=== PATIENT | female | born 1940 | race Caucasian/White ===

== ENCOUNTER 2024-07-01 19:38 | Inpatient (IN) | payer MEDICARE, OTHER, SELFPAY ==
[2024-07-01] VITALS (14 sets, daily range): BP systolic 114–137; BP diastolic 53–61; PULSE 64–76; RESP 16–26; TEMP 36.6–36.9; O2SAT 77–98; BMI 18.3
[2024-07-01 20:34] LABS: Absolute Lymphocyte Count 1.43 X10^3/uL (0.83-4.51); Absolute Neutrophil Count 25.1 X10^3/uL (2.0-7.7); Basophil# 0.12 X10^3/uL; Basophil% 0.4 % (0-1); Eosinophil# 0.01 X10^3/uL; Hematocrit 41.4 % (37-47); Hemoglobin 13.1 g/dL (12.0-15.0); Lymphocyte # 1.43 X10^3/ul (0.83-4.51); Mean Corp Hgb Conc 31.6 g/dL (32-36); Mean Corpuscular Hgb 29.8 pg (27.0-32.0); Mean Corpuscular Volume 94.1 fL (81-99); Mean Platelet Vol. 10.4 fl (6.2-12.0); Monocyte# 1.76 X10^3/uL; Monocyte% 6.1 % (0-10); NRBC Flagged by Analyzer 0 % (0-5); Neutrophil # 25.08 X10^3/uL (2.7-7.7); Neutrophil % 87.3 % (47-70); POSITIVE DIFFERENTIAL YES; Platelet Count 444 K/mm3 (150-450); RBC Distribution Width CV 13.2 % (11.6-14.6); RBC Distribution Width SD 46.5 fl (35.1-43.9); White Blood Count 28.8 K/mm3 (4.4-11.0)
[2024-07-01] MEDS: Ipratropium/Albuterol Sulfate 3 ML AMPUL.NEB 9 ML INHALATION (20:43)
[2024-07-01] MEDS: MethylPREDNISolone 125 MG/2 ML Vial IV (20:45)
[2024-07-01 21:00] LABS: Anion Gap 6 (5-15); BUN 17 mg/dL (7-18); Calcium,Total 9.5 mg/dL (8.5-10.1); Chloride 97 mmol/L (98-107); Creatinine, Serum 0.77 mg/dL (0.55-1.02); EST Glomerular Filtration Rate 75 mL/min (>60); Est Glom Filt Rate - Afr Amer 91 mL/min (>60); Estimated Creatinine Clearance 33.95 ml/min; Glucose 111 mg/dL (74-106); Potassium 4.5 mmol/L (3.5-5.1); Sodium Level 136 mmol/L (136-145); Troponin-I HS 11 pg/mL (3.0-54.0)
[2024-07-01 21:08] LABS: BNP,B-Type NATRIURETIC PEPTIDE 335.3 pg/mL (0-100)
[2024-07-01 21:14] LABS: Differential Indicated SCAN CRITERIA MET
[2024-07-01 21:17] LABS: Differential Comment SCANNED; Reactive Lymphocyte 1+; Toxic Granulation 1+
[2024-07-01 21:28] LABS: D-Dimer Quantitative (DVT/PE) 1.91 FEU/ug/m (0.27-0.49)
[2024-07-01] MEDS: Ceftriaxone 1 GM/50 ML BAG IV (22:54)
[2024-07-01] MEDS: Azithromycin 500 MG in Dextrose 5%-Water (250mL Bag) 250 ML 250 MG IV (23:29)
[2024-07-02] VITALS (13 sets, daily range): BP systolic 106–120; BP diastolic 55–73; PULSE 60–78; RESP 16–20; TEMP 36.5–36.9; O2SAT 93–95; BMI 18.0
[2024-07-02] MEDS: 0.9% Normal Saline (1000mL) 1,000 ML 70 ML IV (00:50)
[2024-07-02 01:33] LABS: Amphetamine Urine VISTA NEGATIVE (<1000 ng/mL); Barbiturate Urine VISTA NEGATIVE (< 200 ng/mL); Benzodiazepine Urine VISTA NEGATIVE (< 200 ng/mL); Cocaine Urine VISTA NEGATIVE (< 300 ng/mL); Ecstacy Urine VISTA NEGATIVE (< 500 ng/mL); Methadone Urine VISTA NEGATIVE (< 300 ng/mL); PCP Urine VISTA NEGATIVE (< 25 ng/mL); THC Urine VISTA NEGATIVE (< 50 ng/mL); Vista UDS pH Range 6
[2024-07-02 08:19] LABS: Absolute Lymphocyte Count 0.71 X10^3/uL (0.83-4.51); Absolute Neutrophil Count 17.4 X10^3/uL (2.0-7.7); Basophil# 0.01 X10^3/uL; Basophil% 0.1 % (0-1); Hematocrit 35.5 % (37-47); Hemoglobin 11.4 g/dL (12.0-15.0); Lymphocyte # 0.71 X10^3/ul (0.83-4.51); Lymphocyte % 3.9 % (19-41); Mean Corp Hgb Conc 32.1 g/dL (32-36); Mean Corpuscular Hgb 29.9 pg (27.0-32.0); Mean Corpuscular Volume 93.2 fL (81-99); Mean Platelet Vol. 10.2 fl (6.2-12.0); Monocyte# 0.13 X10^3/uL; Monocyte% 0.7 % (0-10); NRBC Flagged by Analyzer 0 % (0-5); Neutrophil # 17.39 X10^3/uL (2.7-7.7); Neutrophil % 94.6 % (47-70); Platelet Count 362 K/mm3 (150-450); RBC Distribution Width CV 13.1 % (11.6-14.6); RBC Distribution Width SD 44.5 fl (35.1-43.9); Red Blood Count 3.81 M/mm3 (4.2-5.4); White Blood Count 18.4 K/mm3 (4.4-11.0)
[2024-07-02] MEDS: Pantoprazole Sodium 40 MG Tablet PO (08:50)
[2024-07-02] MEDS: Losartan Potassium 100 MG Tablet PO (08:51)
[2024-07-02] MEDS: Carvedilol 6.25 MG Tablet PO ×2 (08:51→21:39)
[2024-07-02] MEDS: Lactobacillis Acidophilus 1 CAP PO ×3 (08:51→21:39)
[2024-07-02] MEDS: Heparin Injection (Vial) 5,000 UNIT/ML VIAL 5000 UNIT SC ×2 (08:52→21:40)
[2024-07-02] MEDS: amLODIPine 10 MG Tablet PO (08:52)
[2024-07-02] MEDS: guaiFENesin 1,200 MG Tablet 1200 MG PO ×2 (09:11→21:40)
[2024-07-02] MEDS: Ensure Plus High Protein 120 ML LIQUID PO ×2 (09:14→11:37)
[2024-07-02 09:15] LABS: ALB/GLOB Ratio 0.6 RATIO (0.9-2.4); AST(SGOT) 17 U/L (15-37); Alanine Aminotransfer ALT/SGPT 18 U/L (13-56); Albumin, Serum 2.4 g/dL (3.2-5.0); Alkaline Phosphatase 86 U/L (45-117); Anion Gap 13 (5-15); BUN 12 mg/dL (7-18); BUN/Creat Ratio 22.3 RATIO (10-20); Calcium,Total 7.3 mg/dL (8.5-10.1); Chloride 102 mmol/L (98-107); Creatinine, Serum 0.54 mg/dL (0.55-1.02); EST Glomerular Filtration Rate 114 mL/min (>60); Est Glom Filt Rate - Afr Amer 138 mL/min (>60); Estimated Creatinine Clearance 33.23 ml/min; Globulin 4.2 g/dL (2.2-4.2); Glucose 134 mg/dL (74-106); Phosphorus 3.8 mg/dL (2.5-4.9); Potassium 4.5 mmol/L (3.5-5.1); Protein, Total 6.6 g/dL (6.4-8.2); Sodium Level 138 mmol/L (136-145)
[2024-07-02] MEDS: FLU VACCINE **HIGH DOSE** TV 24-25 180 MCG/0.5 ML SYRINGE IM (09:15)
[2024-07-02] MEDS: levoFLOXacin IV 750 MG/150 ML BAG 100 MG IV (09:55)
[2024-07-02] MEDS: Ipratropium/Albuterol Sulfate 3 ML AMPUL.NEB INHALATION (11:10)
[2024-07-02 14:08] LABS: Pathologist Review Reviewed
[2024-07-02] MEDS: 0.9% Saline Lock 10 ML Syringe IV ×2 (14:53→21:37)
[2024-07-02 16:15] LABS: Vitamin B12 332 pg/mL (211-911)
[2024-07-02] MEDS: Furosemide 20 MG Tablet PO (16:41)
[2024-07-02] MEDS: Latanoprost 0.005% 1 Bottle 1 DRP OPHTHALMIC (21:40)
[2024-07-03] VITALS (10 sets, daily range): BP systolic 109–118; BP diastolic 47–65; PULSE 61–81; RESP 18; TEMP 36.4–36.6; O2SAT 87–97; BMI 18.3
[2024-07-03] MEDS: Ipratropium/Albuterol Sulfate 3 ML AMPUL.NEB INHALATION ×2 (07:06→11:04)
[2024-07-03 07:09] LABS: Absolute Neutrophil Count 17.5 X10^3/uL (2.0-7.7); Basophil# 0.01 X10^3/uL; Basophil% 0.1 % (0-1); Hematocrit 35.6 % (37-47); Hemoglobin 11.2 g/dL (12.0-15.0); Lymphocyte % 3.2 % (19-41); Mean Corp Hgb Conc 31.5 g/dL (32-36); Mean Corpuscular Hgb 29.4 pg (27.0-32.0); Mean Corpuscular Volume 93.4 fL (81-99); Mean Platelet Vol. 10.1 fl (6.2-12.0); Monocyte# 0.41 X10^3/uL; Monocyte% 2.2 % (0-10); NRBC Flagged by Analyzer 0 % (0-5); Neutrophil # 17.48 X10^3/uL (2.7-7.7); Neutrophil % 93.8 % (47-70); POSITIVE DIFFERENTIAL YES; Platelet Count 388 K/mm3 (150-450); RBC Distribution Width SD 44.6 fl (35.1-43.9); Red Blood Count 3.81 M/mm3 (4.2-5.4); White Blood Count 18.6 K/mm3 (4.4-11.0)
[2024-07-03 07:32] LABS: Anion Gap 3 (5-15); BUN 24 mg/dL (7-18); BUN/Creat Ratio 37.7 RATIO (10-20); Calcium,Total 8.9 mg/dL (8.5-10.1); Chloride 103 mmol/L (98-107); Creatinine, Serum 0.64 mg/dL (0.55-1.02); EST Glomerular Filtration Rate 94 mL/min (>60); Est Glom Filt Rate - Afr Amer 114 mL/min (>60); Estimated Creatinine Clearance 33.71 ml/min; Glucose 140 mg/dL (74-106); Magnesium 1.9 mg/dL (1.6-2.6); Phosphorus 3.7 mg/dL (2.5-4.9); Potassium 3.8 mmol/L (3.5-5.1); Sodium Level 139 mmol/L (136-145)
[2024-07-03] MEDS: Carvedilol 6.25 MG Tablet PO (09:15)
[2024-07-03] MEDS: Lactobacillis Acidophilus 1 CAP PO ×2 (09:15→14:24)
[2024-07-03] MEDS: Losartan Potassium 100 MG Tablet PO (09:16)
[2024-07-03] MEDS: Heparin Injection (Vial) 5,000 UNIT/ML VIAL 5000 UNIT SC (09:16)
[2024-07-03] MEDS: amLODIPine 10 MG Tablet PO (09:16)
[2024-07-03] MEDS: Furosemide 20 MG Tablet PO (09:16)
[2024-07-03] MEDS: guaiFENesin 1,200 MG Tablet 1200 MG PO (09:16)
[2024-07-03] MEDS: Pantoprazole Sodium 40 MG Tablet PO (09:16)
[2024-07-03] MEDS: 0.9% Saline Lock 10 ML Syringe IV (14:24)
== END 2024-07-03 15:24 | disposition home health service (06) | DRG 193 ==
LOC: ED 23:00 → MS3 23:20
PROVIDERS: Admitting Provider Internal Medicine; Emergency Provider Surgery; PCP Family Medicine; Visit Provider Internal Medicine
DX: J18.9 Pneumonia, unspecified organism (principal); G93.41 Metabolic encephalopathy; J96.01 Acute respiratory failure with hypoxia; G92.8 Other toxic encephalopathy; R64 Cachexia; J44.0 Chronic obstructive pulmonary disease with (acute) lower respiratory infection; J44.1 Chronic obstructive pulmonary disease with (acute) exacerbation; Z68.1 Body mass index [BMI] 19.9 or less, adult; I27.20 Pulmonary hypertension, unspecified; F03.90 Unspecified dementia, unspecified severity, without behavioral disturbance, psychotic disturbance, mood disturbance, and anxiety; I10 Essential (primary) hypertension; I07.1 Rheumatic tricuspid insufficiency; K21.9 Gastro-esophageal reflux disease without esophagitis; M19.90 Unspecified osteoarthritis, unspecified site; E86.1 Hypovolemia; J43.2 Centrilobular emphysema; H40.9 Unspecified glaucoma; Z23 Encounter for immunization; Z66 Do not resuscitate; Z11.52 Encounter for screening for COVID-19; R79.89 Other specified abnormal findings of blood chemistry; Z79.899 Other long term (current) drug therapy; Z87.891 Personal history of nicotine dependence
CPT/HCPCS: 36415; 71046; 71275; 80048; 80053; 80307; 82607; 82746; 83735; 83880; 84100; 84443; 84484; 85025; 85379; 87449; 87631; 87633; 90662; 93005; 93306; 93970; 94640; 94668; 97161; 97166; 97802; 99285; J7030; J7040; Q9967; A4216

== ENCOUNTER → 2024-07-24 | Outpatient (CLI) | payer MEDICARE, OTHER, SELFPAY ==
[2024-07-24 10:49] LABS: Hematocrit 39.7 % (37-47); Hemoglobin 12.3 g/dL (12.0-15.0); Mean Corpuscular Hgb 29.6 pg (27.0-32.0); Mean Corpuscular Volume 95.4 fL (81-99); Mean Platelet Vol. 10.5 fl (6.2-12.0); Platelet Count 331 K/mm3 (150-450); RBC Distribution Width CV 13.3 % (11.6-14.6); RBC Distribution Width SD 46.6 fl (35.1-43.9); Red Blood Count 4.16 M/mm3 (4.2-5.4); White Blood Count 12.9 K/mm3 (4.4-11.0)
[2024-07-24 11:46] LABS: Anion Gap 5 (5-15); BUN 19 mg/dL (7-18); Calcium,Total 9.1 mg/dL (8.5-10.1); Chloride 101 mmol/L (98-107); Creatinine, Serum 0.56 mg/dL (0.55-1.02); EST Glomerular Filtration Rate 109 mL/min (>60); Est Glom Filt Rate - Afr Amer 132 mL/min (>60); Glucose 99 mg/dL (74-106); Potassium 4.9 mmol/L (3.5-5.1); Sodium Level 139 mmol/L (136-145)
== END | disposition home or self-care (01) ==
LOC: HHLAB 10:33
PROVIDERS: PCP Family Medicine; Referring Provider Family Medicine; Visit Provider Family Medicine
DX: J18.9 Pneumonia, unspecified organism (principal); J44.0 Chronic obstructive pulmonary disease with (acute) lower respiratory infection; J44.1 Chronic obstructive pulmonary disease with (acute) exacerbation; G93.41 Metabolic encephalopathy
CPT/HCPCS: 80048; 85027

== ENCOUNTER 2025-05-30 13:35 | Emergency (ER) | payer MEDICARE, OTHER, SELFPAY ==
[2025-05-30] VITALS (10 sets, daily range): BP systolic 120–148; BP diastolic 45–59; PULSE 46–64; RESP 13–22; TEMP 36.6–36.9; O2SAT 96–100; BMI 19.3
--- NOTE | 2025-05-30 14:13 | EKG12_ITS ---
Test Reason : GENERAL WEAKNESS Blood Pressure : */* mmHG Vent. Rate : 47 BPM Atrial Rate : 47 BPM P-R Int : 192 ms QRS Dur : 76 ms QT Int : 452 ms P-R-T Axes : 70 -53 38 degrees QTcB Int : 400 ms Sinus bradycardia Left anterior fascicular block Nonspecific ST abnormality Abnormal ECG Confirmed by DORA CASTANEDA, MARIO ([id number]), food editor TAY REEDER ([id number]) on 06/02/2025 6:30:52 AM Referred By: Confirmed By: MARIO JOHN MD
--- NOTE | 2025-05-30 14:27 | EDS_ITS ---
HPI History of Present Illness Chief Complaint: Shortness of Breath Informant: patient Narrative Narrative: Patient is a 84-year-old female with history of dementia, scoliosis with chronic back pain, hypertension and GERD presenting for evaluation after an episode of near syncope. Patient was 2 L of oxygen at baseline. She reportedly had a normal day and had her hair done. They were back home soon on the deck when she felt like she needed to use the restroom. She started walking to the bathroom but her daughter noted that something seemed off so she followed her. Patient was noted to become hot, very pale and sweaty. She sat down. Granddaughter tried to take vitals and her heart rate was 45, O2 sat was 95 but she could not get her blood pressures and then the 1 was called. Family reports that when EMS checked her heart rate was 143 and her O2 sat was 78% on 2 L. She was turned up to 3 L and transferred to the emergency room. Family notes that patient has returned to baseline. Family does note that her heart rate does tend to run in the 40s and 50s. [facility] Medical History Former smoker Dementia HTN (hypertension) COPD (chronic obstructive pulmonary disease) Home Medications ?Medication ?Instructions ?Recorded ?Last Taken ?Type amlodipine 10 mg tablet 10 mg PO DAILY 07/01/24 Unkn own History carvedilol 6.25 mg tablet 6.25 mg PO BID 07/01/24 Unkn own History donepezil 5 mg tablet 2.5 mg PO QHS 07/01/24 Unkno wn History hydrocodone-acetaminophen 5-325mg 1 tab PO BID PRN sev ere pain 07/01/24 Unknown History 5mg-325mg latanoprost 0.005 % eye drops 1 drp ophthalmic (eye) Q HS 07/01/24 Unknown History losartan 100 mg tablet 100 mg PO DAILY 07/01/24 Unk nown History omeprazole 40 mg capsule,delayed 40 mg PO DAILY Unknown History release albuterol sulfate 90 mcg/actuation 1 inh inhalation Q6 H PRN shortness 07/03/24 Unknown Rx aerosol inhaler of breath or wheezing #8.5 g elma cephalexin 500 mg capsule 500 mg PO Q12 #10 CAPSULES 1 Unknown Rx Allergy/AdvReac Type Severity Reaction Status Date / Time No Known Allergies Allergy Verified 05/30/25 13:35 Surgical History Shoulder joint replacement status Social History Smoking Status: Former smoker ROS ROS ED Constitutional Constitutional ED: Reports sweats and other Details: Near syncopal episode ; Denies chills or fever(s) Eyes Eyes: Denies change in vision Respiratory/Chest Respiratory/Chest: Denies cough Gastrointestinal Gastrointestinal: Denies abdominal pain, nausea or vomiting Genitourinary Genitourinary ED: Denies urinary frequency Musculoskeletal Musculoskeletal: Reports back pain; Denies myalgias Integumentary Denies rash Neurologic Neurologic: Reports weakness Hematologic/Lymphatic Hematologic/Lymphatic: Denies easy bleeding or easy bruising EXAM Physical Exam Const Vital Signs: 05/30/25 13:36 05/30/25 13:41 05/30/25 13:41 Temperature 97.9 F 97.9 F Temperature Source Oral Oral Pulse Rate 53 L 48 L Pulse Rate [Lying] Pulse Rate [Sitting (for 1 minute prior to obtaining)] Pulse Rate [Standing (for 1 minute prior to obtaining)] Respiratory Rate 22 H 20 H Respiratory Effort Normal Respiratory Depth Normal Respiratory Pattern Normal Blood Pressure 120/45 L 120/45 L Blood Pressure [Lying] Blood Pressure [Sitting (for 1 minute prior to obtaining)] Blood Pressure [Standing (for 1 minute prior to obtaining)] Blood Pressure Mean 70 70 Blood Pressure Mean [Lying] Blood Pressure Mean [Sitting (for 1 minute prior to obtaining)] Blood Pressure Mean [Standing (for 1 minute prior to obtaining)] Pulse Ox 100 100 Oxygen Delivery Method Nasal Cannula Nasal Cannula Nasal Cannula Oxygen Flow Rate (L/min) 2 2 2 05/30/25 14:40 05/30/25 15:00 05/30/25 15:15 Temperature 97.9 F 98.4 F Temperature Source Oral Oral Pulse Rate 49 L 54 L Pulse Rate [Lying] 46 L Pulse Rate [Sitting (for 1 minute prior to obtaining)] 56 L Pulse Rate [Standing (for 1 minute prior to obtaining)] 60 Respiratory Rate 21 H 13 Respiratory Effort Respiratory Depth Respiratory Pattern Blood Pressure 120/45 L 133/55 H Blood Pressure [Lying] 133/55 H Blood Pressure [Sitting (for 1 minute prior to obtaining)] 139/59 H Blood Pressure [Standing (for 1 minute prior to obtaining)] 148/58 H Blood Pressure Mean 70 81 Blood Pressure Mean [Lying] 81 Blood Pressure Mean [Sitting (for 1 minute prior to obtaining)] 85 Blood Pressure Mean [Standing (for 1 minute prior to obtaining)] 88 Pulse Ox 99 100 Oxygen Delivery Method Room Air Nasal Cannula Oxygen Flow Rate (L/min) 2 05/30/25 15:34 05/30/25 16:00 05/30/25 17:00 Temperature Temperature Source Pulse Rate 49 L 52 L Pulse Rate [Lying] Pulse Rate [Sitting (for 1 minute prior to obtaining)] Pulse Rate [Standing (for 1 minute prior to obtaining)] Respiratory Rate 19 H 20 H Respiratory Effort Respiratory Depth Respiratory Pattern Blood Pressure Blood Pressure [Lying] Blood Pressure [Sitting (for 1 minute prior to obtaining)] Blood Pressure [Standing (for 1 minute prior to obtaining)] Blood Pressure Mean Blood Pressure Mean [Lying] Blood Pressure Mean [Sitting (for 1 minute prior to obtaining)] Blood Pressure Mean [Standing (for 1 minute prior to obtaining)] Pulse Ox 100 100 100 Oxygen Delivery Method Nasal Cannula Oxygen Flow Rate (L/min) 2 05/30/25 17:48 Temperature 98.1 F Temperature Source Pulse Rate 64 Pulse Rate [Lying] Pulse Rate [Sitting (for 1 minute prior to obtaining)] Pulse Rate [Standing (for 1 minute prior to obtaining)] Respiratory Rate 18 Respiratory Effort Respiratory Depth Respiratory Pattern Blood Pressure 148/58 H Blood Pressure [Lying] Blood Pressure [Sitting (for 1 minute prior to obtaining)] Blood Pressure [Standing (for 1 minute prior to obtaining)] Blood Pressure Mean 88 Blood Pressure Mean [Lying] Blood Pressure Mean [Sitting (for 1 minute prior to obtaining)] Blood Pressure Mean [Standing (for 1 minute prior to obtaining)] Pulse Ox 100 Oxygen Delivery Method Oxygen Flow Rate (L/min) Positive well nourished and well developed General Appearance ED: well developed and NAD HEENT Reports moist mucous membranes Negative for trauma Eyes PERRL Neck supple and no JVD Chest Wall inspection of chest normal and palpation of chest normal Resp normal respiratory effort and clear to auscultation bilaterally Cardio regular rate, regular rhythm and no murmurs GI normal to inspection, nondistended, normoactive bowel sounds and non-tender Extremity normal to inspection General Extremety ED: Negative for edema General Extremity: Negative for edema Neuro Neuro Narrative: Oriented to person only which is her baseline. Had no focal weakness appreciated. Normal tone throughout Sensorium / Orientation: alert Motor Exam: Negative for general weakness Psych mental status grossly normal Skin no rashes or lesions noted and no wounds MDM MDM MDM Narrative Medical decision making narrative: Patient evaluated after an episode of low blood pressure and was on second near syncopal episode while at home. She was in her normal state of health prior to this. Differential includes symptomatic anemia, vasovagal episode, arrhythmia, ACS, UTI, JANES, dehydration and electrolyte derangement. Reportedly patient was hypoxic at 78% on 2 L however she is currently 100% on 2 L here and I wonder if that was an erroneous reading. She initially does have from some slight bradycardia upon arrival however she is on carvedilol. Her daughter does voice concern that she might be on too high of a dose and they are trying to reestablish with a new primary care doctor since her old PCP had a medical event and is not seeing patients anymore. Patient is a mild leukocytosis of 12.2 with a hemoglobin 11.2. Hemoglobin is near her baseline. Her granddaughter does note that she seemed of darker stools however patient has a normal BUN and creatinine. That in conjunction with baseline hemoglobin have a low suspicion for occult GI bleeding. She is mildly hyperglycemic with a glucose of 150 however she has a normal anion gap. High sensitive troponin is 30 and a repeat is 32. EKG does not show any ischemic changes. Urinalysis is consistent with urinary tract infection with 500 leukocyte esterase, 10-25 white blood cells and 1+ bacteria. There is no epithelial contamination. She also has 5-10 hyaline cast. Patient is given 500 cc of IV fluid in the emergency room. I am started on Keflex for suspected urinary tract infection. Orthostatics are negative in the emergency room patient ambulated on 2 L without any hypoxia. At this time suspect patient likely the near syncopal events likely compounded by some mild dehydration and a UTI. Family is comfortable taking her home. Given return precautions. Urine cultures pending. Discharged home in stable and improved condition. Lab Data Attestation: I reviewed the patient's lab results. Labs: Laboratory Results - last 24 hr 05/30/25 05/30/25 05/30/25 13:53 15:28 16:20 WBC 12.2 H RBC 3.82 L Hgb 11.2 L Hct 35.2 L MCV 92.1 MCH 29.3 MCHC 31.8 L RDW Std Deviation 45.1 H RDW Coeff of Ashlie 13.3 Plt Count 305 MPV 11.0 Immature Gran % (Auto) 0.300 Neut % (Auto) 76.3 H Lymph % (Auto) 14.8 L [place] % (Auto) 5.6 Eos % (Auto) 2.4 Baso % (Auto) 0.6 Absolute Neuts (auto) 9.3 H Absolute Lymphs (auto) 1.80 Nucleated RBC % 0 Sodium 137 Potassium 4.5 Chloride 99 Carbon Dioxide 28.4 Anion Gap 10 BUN 17 Creatinine 0.64 L Estim Creat Clear Calc 35.78 L Est GFR (MDRD) Non-Af 86 BUN/Creatinine Ratio 27.1 H Glucose 150 H Calcium 8.8 Troponin T High Sens 30 H Troponin T Hi Sens 2 Hr 32 H Urine Color Yellow Urine Clarity Sl. Cloudy Urine pH 6.0 Ur Specific [place] 1.020 Urine Protein 30 H Urine Glucose (UA) Normal Urine Ketones Negative Urine Occult Blood 25 H Urine Nitrite Negative Urine Bilirubin Negative Urine Urobilinogen Normal Ur Leukocyte Esterase 500 H Urine RBC 5-10 SEEN Urine WBC 10-25 SEEN Ur Squamous Epith Cells 0 SEEN Urine Bacteria 1+ Hyaline Casts 5-10 SEEN Urine Mucus 0 SEEN Radiography Diagnostic Testing: Clinical Impression(s) from Imaging Studies Chest X-Ray 05/30/25 14:30 IMPRESSION: 1. Pulmonary arterial hypertension. 2. Large hiatus hernia 3. No acute cardiopulmonary process. Emphysema. Reading Location: [facility] Rhythm Strip Rhythm Strip: Sinus bradycardia Rate: 47 Ectopy: None EKG Initial EKG: Attestation: I personally reviewed and interpreted this EKG as follows: Interpretation: Sinus Bradycardia Comments: Sinus bradycardia rate of 47 bpm Leftward axis Normal intervals Normal ST segments Compared to prior EKG on 07/21 patient is now bradycardic but no acute ischemic change Prior EKG tracings: available for review Discharge Plan Triage Chief Complaint: Shortness of Breath ED Provider: Jessica Kennedy Dx/Rx/DC Orders Clinical Impression: Acute UTI, Acute dehydration, Near syncope Instructions: ED Dehydration (Adult), ED Near-Fainting, Uncertain Cause, ED UTIs Women Prescriptions: New cephalexin 500 mg capsule 500 mg PO Q12 Qty: 10 0RF No Action latanoprost 0.005 % drops 1 drp ophthalmic (eye) QHS carvedilol 6.25 mg tablet 6.25 mg PO BID donepezil 5 mg tablet 2.5 mg PO QHS hydrocodone-acetaminophen 5-325 mg tablet 1 tab PO BID PRN (Reason: severe pain) omeprazole 40 mg capsule,delayed release(DR/EC) 40 mg PO DAILY amlodipine 10 mg tablet 10 mg PO DAILY losartan 100 mg tablet 100 mg PO DAILY albuterol sulfate 90 mcg/actuation HFA aerosol inhaler 1 inh inhalation Q6H PRN (Reason: shortness of breath or wheezing) Qty: 8.5 0RF Rx Instructions: Please use with spacer as instructed by respiratory therapy Primary Care Provider: Care Physician,No Primary Referrals: Estela Desir, [Non-Staff, Family Practice] Care Physician,No Primary [Primary Care Provider, Medical] Katharina Tsang, FLOOR CARE SPECIALIST-C [[facility], [facility]] Activity Restrictions/Additional Instructions: Encourage fluids and regular meals. take the entire course of antibiotics. You been given some information for their family medicine practice in [place] as well as [place]. If she has worsening symptoms please return to the emergency room. Her workup shows some signs of mild dehydration as well as urinary tract infection but otherwise was largely normal Print Language: Frisian Disposition Disposition: Home, Self Care Discharge Date/Time: 05/30/25 17:49
--- NOTE | 2025-05-30 14:30 | RAD_ITS ---
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 EKG leads are seen. Heart: Mildly enlarged. Considerable enlargement of the pulmonary arteries consistent with pulmonary arterial hypertension. Mediastinum: Aortic atherosclerosis without aneurysm. Large hiatus hernia Lungs: No consolidation or mass. Hyperlucency in the right middle lobe and right lower lobe represents a pneumatocele that is unchanged. Emphysema in the upper lobes is present. Bones: Curvature thoracolumbar spine to the left. RAD/Chest PA and Lateral IMPRESSION: 1. Pulmonary arterial hypertension. 2. Large hiatus hernia 3. No acute cardiopulmonary process. Emphysema. Reading Location: [id number]
[2025-05-30 14:43] LABS: Hematocrit 35.2 % (37-47); Hemoglobin 11.2 g/dL (12.0-15.0); Immature Granulocytes Count 0.040 X10^3/uL (0.0-0.0); Mean Corp Hgb Conc 31.8 g/dL (32-36); Mean Corpuscular Volume 92.1 fL (81-99); Mean Platelet Vol. 11.0 fl (6.2-12.0); NRBC Flagged by Analyzer 0 % (0-5); Platelet Count 305 K/mm3 (150-450); RBC Distribution Width CV 13.3 % (11.6-14.6); RBC Distribution Width SD 45.1 fl (35.1-43.9); Red Blood Count 3.82 M/mm3 (4.2-5.4); White Blood Count 12.2 K/mm3 (4.4-11.0)
[2025-05-30 14:46] LABS: Troponin T High Sensitivity 30 ng/L (<=14)
[2025-05-30 14:47] LABS: Anion Gap 10 (5-15); BUN 17 mg/dL (4-19); BUN/Creat Ratio 27.1 RATIO (10-20); Calcium,Total 8.8 mg/dL (7.6-11.0); Carbon Dioxide 28.4 mmol/L (21.0-32.0); Chloride 99 mmol/L (98-108); Estimated Creatinine Clearance 35.78 ml/min (50-250); Glucose 150 mg/dL (70-99); Potassium 4.5 mmol/L (3.3-5.1)
[2025-05-30 15:34] LABS: Mucous, Urine 0 SEEN /hpf (<or=2+); Squamous Epithelial Cells - UA 0 SEEN /hpf (5-10)
[2025-05-30 15:41] LABS: Color, Urine Yellow (Yellow); Glucose, Dipstick Normal (Normal); Ketone-Dipstick Negative (Negative); Leukocyte Esterase-Dipstick 500 /ul (Negative); Nitrite-Dipstick Negative (Negative); Occult Blood-Urine 25 /ul (Negative); Protein-Dipstick 30 mg/dl (Negative); Specific Gravity, Urine 1.020 (1.002-1.030); Urine Bilirubin Dipstick Negative (Negative)
[2025-05-30] MEDS: 0.9% Normal Saline (500mL Bag) 500 ML 999 ML IV (15:51)
[2025-05-30 15:52] LABS: Red Blood Cells-Urine 5-10 SEEN /hpf (0-5)
[2025-05-30 17:12] LABS: Troponin T High Sens 2 HR 32 ng/L (<=14)
== END 2025-05-30 17:49 | disposition home or self-care (01) ==
PROVIDERS: Emergency Provider Emergency Medicine; Visit Provider Emergency Medicine
DX: N39.0 Urinary tract infection, site not specified (principal); F03.90 Unspecified dementia, unspecified severity, without behavioral disturbance, psychotic disturbance, mood disturbance, and anxiety; J44.9 Chronic obstructive pulmonary disease, unspecified; E86.0 Dehydration; R09.02 Hypoxemia; I10 Essential (primary) hypertension; R00.1 Bradycardia, unspecified; R73.9 Hyperglycemia, unspecified; Z87.891 Personal history of nicotine dependence; K21.9 Gastro-esophageal reflux disease without esophagitis; R42 Dizziness and giddiness; R06.02 Shortness of breath; Z99.81 Dependence on supplemental oxygen
CPT/HCPCS: 71046; 80048; 81001; 84484; 85025; 87077; 87086; 87088; 87186; 87631; 93005; 96360; 99285; A4216